=== PATIENT | male | born 1995 | race Caucasian/White ===

== ENCOUNTER 2018-07-06 07:49 | Emergency (ER) | payer OTHER ==
[2018-07-06] MEDS ORDERED: Morphine 10 MG/ML VIAL (1 ml) IV ONE (09:09)
[2018-07-06] MEDS ORDERED: Ketorolac INJ* 30 MG/ML 1 ML VIAL IV PUSH ONE (09:09)
[2018-07-06] MEDS ORDERED: Ondansetron INJ* 2 MG/ML VIAL IV ONE ×2 (09:11→12:49)
--- NOTE | 2018-07-06 09:17 | ED ---
Skin Complaint - HPI Summary HPI Summary: Pt here w/ pain along Lt gluteal crevice which started mid week - noticed w/ sitting. Worse since. Drained a little blood from area yesterday. [facility] ([facility]) - dx'd pilonidal cyst and rx'd clindamycin. Has been taking ibuprofen which was helping until last night when pain got worse, triggering nausea. Fever last night. Has tried acetaminophen as well w/o relief. No I&D. 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 Due to fly to [place] tomorrow. No med hx pain 8/10 at rest - worse w/ movement, sitting, BM's. - History of Current Complaint Chief Complaint: EDRashSkinAbscess Time Seen by Provider: 07/06/18 08:04 Stated Complaint: "SEEN AT FOR CYST AND ITS MORE PAINFUL" PER PT Hx Obtained From: Patient, Family/[employer] - step-mom Pain Intensity: 10 - Allergy/Home Medications Allergies/Adverse Reactions: Allergies Allergy/AdvReac Type Severity Reaction Status Date / Time No Known Allergies Allergy Verified 07/06/18 07:57 PMH/Surg Hx/FS Hx/Imm Hx Previously Healthy: Yes Endocrine/Hematology History: Denies: Hx Anticoagulant Therapy, Hx Blood Disorders, Hx Diabetes, Hx Unexplained Bleeding, Autoimmune Disease Infectious Disease History: No Infectious Disease History: Reports: Traveled Outside the [place] in Last 30 Days - returned from out of country 20 days ago Denies: Hx Human Immunodeficiency Virus (HIV), Hx of Known/Suspected MRSA - Family History Known Family History: Positive: Other - father - pilonidal cyst - Social History Occupation: Employed Full-time - [employer] Alcohol Use: Occasionally Hx Substance Use: No Substance Use Type: Reports: None Hx Tobacco Use: No Smoking Status (MU): Never Smoked Tobacco Review of Systems Positive: Fever - subjective and intermittent. Negative: Chills, Fatigue Eyes: Negative ENT: Negative Cardiovascular: Negative Respiratory: Negative Positive: Nausea. Negative: Abdominal Pain, Vomiting, Diarrhea Positive: no symptoms reported Musculoskeletal: Negative Skin: Other - skin over glute painful Neurological: Negative Psychological: Normal - concerned about pain -otherwise feeling fine All Other Systems Reviewed And Are Negative: Yes Physical Exam Triage Information Reviewed: Yes Vital Signs On Initial Exam: Initial Vitals Temp Pulse Resp BP Pulse Ox 98.4 F 98 16 151/94 95 07/06/18 07:54 07/06/18 07:54 07/06/18 07:54 07/06/18 07:54 07/06/18 07:54 Vital Signs Reviewed: Yes Appearance: Positive: Well-Appearing, Well-Nourished, Pain Distress - lying on side on stretcher Skin: Positive: Warm, Skin Color Reflects Adequate Perfusion, Dry, Erythema @ - Lt gluteal crevice - shiny, firm, exquisite TTP, feverish to touch - no pore or drainage observed but small area of abrasion w/ blood tinged serous wetness ( scant in 2 mm area) - fecal material about the anus - no bleeding or active drainage; no midline tissue appears to be affected Head/Face: Positive: Normal Head/Face Inspection Eyes: Positive: EOMI ENT: Positive: Hearing grossly normal, Pharynx normal - mucosa moist Respiratory/Lung Sounds: Positive: Breath Sounds Present Cardiovascular: Positive: RRR Abdomen Description: Positive: Nontender, Soft Musculoskeletal: Positive: Normal, Strength/ROM Intact Neurological: Positive: Normal, Sensory/Motor Intact, Alert, Oriented to Person Place, Time, CN Intact II-III Psychiatric: Positive: Normal - anxious from pain but otherwise calm - Briseida Coma Scale Best Eye Response: 4 - Spontaneous Best Motor Response: 6 - Obeys Commands Best Verbal Response: 5 - Oriented Coma Scale Total: 15 Procedures - Incision and Drainage Left Buttocks Site: Lt inner glute along crevice Anesthesia: Local, Lidocaine - 1% Instrument(s): Scalpel - #11 - ~20cc seropurulent d/c - few small clots - malodorous Packing: Gauze - plain 1/2" - 10cm; applied ABD pad w/ mesh undergarments - hemodynamically stable, acute pain relief upon release of contents Diagnostics - Vital Signs Vital Signs Temp Pulse Resp BP Pulse Ox 07/06/18 09:04 76 96 07/06/18 09:03 139/88 07/06/18 07:54 98.4 F 98 16 151/94 95 - Laboratory Result Diagrams: 07/06/18 09:21 07/06/18 09:21 Lab Statement: Any lab studies that have been ordered have been reviewed, and results considered in the medical decision making process. Re-Evaluation - Re-Evaluation First Eval Change: Improved - pain almost completely resolved s/p morphine + toradol - then worse Second Eval Change: Improved - better after I&D and more pain med Course/Dx - Course Course Of Treatment: I&D performed - pt tolerated well and reported relief upon release of contained fluids. Labs today reveal infection but he does not appear septic. Advised close monitoring of sx and return to ED if worse. Discussed close f/u care, wound care and advised against travel to [place] tomorrow. He is aware that cultures were taken today and he may receive a call if his medicatoins need to be changed. He will also return to ED if worse. Pt and mom who was present agree w/ plan. NOTE: spoke w/ Brad Romano and sent an e-mail to regarding pt's medical condition with the permission of Lazaro Barahona, patient. He is aware that he has privacy rights. He is also aware of the possibility of leaked information via internet as e-mail was used to relay information. - Diagnoses Provider Diagnoses: Abscess, gluteal, left Discharge - Sign-Out/Discharge Documenting (check all that apply): Patient Departure Patient Received Moderate/Deep Sedation with Procedure: No - Discharge Plan Condition: Stable Disposition: HOME Prescriptions: Ibuprofen TAB* [Motrin TAB* 800 MG] 800 mg PO Q6H PRN #30 tab PRN Reason: Pain oxyCODONE/Acetamin 5/325 MG* [Percocet 5/325 TAB*] 1 tab PO Q6H PRN #20 tab MDD 4 PRN Reason: Pain Patient Education Materials: Pilonidal Cyst (ED), Wound Healing and Your Diet ( ED), Incision and Drainage (ED) Forms: *Work Release Referrals: Kath Bojorquez MD [Medical Doctor] - Additional Instructions: You have had an incision with drainage and packing of your abscess/cyst. It is important that you keep the area clean and covered to allow for drainage to continue. Once dressing becomes saturated, change the outer padding. Do not remove packing on your own - a surgeon will see you Sunday for packing change and wound evaluation. Call to schedule this appointment first thing in the morning. If they cannot get you in same day, follow-up with your PCP, urgent care or return to ED to have dressing/packing changed. In the meantime, complete your antibiotics and continue pain medications as needed. *A culture was taken today. If your antibiotic needs to be changed, you should receive a call in the next 48 hours. If you do not receive a call, contact the ED for results. *If worse, return to ED. NOTE: to keep the area clean after BM, use a spray bottle or a "jeremias" bottle. You may get this at your local pharmacy. Avoid soaking to prevent worsening of infection. Do not keep a soiled dressing in place - change for a clean dressing. - Billing Disposition and Condition Condition: STABLE Disposition: Home
[2018-07-06 09:40] LABS: ABS Eosinophils 0.1 10^3/ul (0-0.6); ABS Lymphocytes 0.7 10^3/ul (1.0-4.8); ABS Monocytes 1.1 10^3/ul (0-0.8); Eosinophil % 0.4 %; Hematocrit 49 % (42-52); Hemoglobin 16.5 g/dL (14.0-18.0); Mean Corpuscular HGB Conc 34 g/dL (31-36); Mean Corpuscular Hemoglobin 29 pg (27-31); Mean Corpuscular Volume 85 fL (80-94); Mean Platelet Volume 8.4 fL (7.4-10.4); Nucleated Red Blood Cells % 0.2; Platelet Count 224 10^3/uL (150-450); Red Cell Distribution Width 14 % (10.5-15); White Blood Count 13.9 10^3/uL (3.5-10.8)
[2018-07-06 10:00] LABS: Albumin 4.2 g/dL (3.2-5.2); Albumin/Globulin Ratio 1.2 (1-3); BUN/Creatinine Ratio 16.7 (8-20); C Reactive Protein 36.23 mg/L (<8.01); Calcium 9.5 mg/dL (8.6-10.3); EGFR African American 110.5 (>60); EGFR Non-African American 91.3 (>60); Globulin 3.5 g/dL (2-4); Potassium 4.1 mmol/L (3.5-5.0); Total Bilirubin 0.6 mg/dL (0.2-1.0); Total Protein 7.7 g/dL (6.4-8.9)
[2018-07-06] MEDS ORDERED: Clindamycin CAP* 150 MG PO ONE (11:50)
[2018-07-06] MEDS ORDERED: Lidocaine 1% INJ* 10 MG/ML 30 ML SDV INJ ONE (12:30)
[2018-07-06] MEDS ORDERED: Lidocaine 1% INJ* 10 MG/ML 30 ML SDV ONE (12:33)
[2018-07-06] MEDS ORDERED: Morphine 4 MG/ML VIAL (1 ml) 4 MG/ML VIAL IV ONE (12:38)
[2018-07-06] MEDS ORDERED: oxyCODONE/Acetamin 5/325 MG* TAB PO ONE (13:50)
[2018-07-06 14:25] VITALS: BP 145/90
== END 2018-07-06 14:29 | disposition home or self-care (01) ==
LOC: ED 07:49
DX: L02.31 Cutaneous abscess of buttock (principal); R11.0 Nausea
CPT/HCPCS: 10060; 36415; 80053; 83605; 85025; 86140; 87040; 96374; 96375; 96376; 99283; A9270-GY; J1885; J2270; J2405